=== PATIENT | male | born 1955 | race Caucasian/White ===

== ENCOUNTER 2020-07-24 11:01 | Inpatient (IN) | payer OTHER, MEDICARE ==
[2020-07-24] VITALS (10 sets, daily range): BP systolic 77–143; BP diastolic 44–78
[~2020-07-24] VITALS: Ht 170.2 cm; Wt 73.4 kg
--- NOTE | 2020-07-24 11:03 | NUR ---
ED Nurse Note: Pt BIBA RA61 from asssited living facility c/o hyperglycemia. Per EMS, accucheck reads 'High", NS 200ml IV was given en route Pt has hx of ETOH, non compliant with is medications. Stated his last alcohol intake was 4 days ago. Noted with labored breathing, 99% RA. AAox4, verbally responisve. Pt placed on site monitor. ERMD at bedside.
--- NOTE | 2020-07-24 11:05 | Emergency Room Report ---
History of Present Illness General Source: Patient Present Illness HPI 65-year-old male brought by EMS from [facility] for complaint of hypoglycemia. In the field, Accu-Chek was read "high". Patient states that he has been drinking recently and forgot to take his medications. He has had several hospitalizations in the past for DKA. He denies fevers, chills, nausea, vomiting, diarrhea, dysuria, melena, hematochezia or focal weakness. He states that he is really thirsty and he has been peeing a lot. Denies syncope, falls, head trauma, visual changes, difficulty ambulating The patient's symptoms were gradual onset, severity was moderate, duration since several days. Quality: Thirsty Past medical history: Diabetes, alcoholism Past surgical history: Denies Smoking: Denies Alcohol use: Heavy daily use Drug use: Denies Review of systems: CONST: No fevers or chills, No night sweats PULMONARY: No productive cough, No shortness of breath CARDIAC: No chest pain, No palpitations GI: No vomiting, No diarrhea , No melena_or_BRBPR : No dysuria, No hematuria, No discharge NEURO: No new_focal_weakness_or_numbness, No confusion, No vision changes 14 point Review of Systems is otherwise negative except per HPI Physical Exam: GENERAL: Awake_alert_ nontoxic, no acute distress Spo2 98% on RA -normal EYES: Extraocular muscles are intact. Conjunctivae clear. Lids without swelling ENT: External nose and ear normal_in_appearance. Oropharynx clear. Head_atraumatic, dry_oral_mucosa NECK: No JVD. No meningismus. No thyromegaly. Supple. Trachea midline RESP: Tachypneic. Kussmaul respirations. Normal respiratory effort. Symmetric rise. No stridor. Clear_to_auscultation_ No_rales_No_wheezes CARDIAC: Tachycardic. And regular rhytm. No_significant pedal edema. ABDOMEN: Soft. Nondistended. Nontender_No_rebound_or_guarding. MSK: Normal muscle tone, without rigidity. Extremities without asymmetric deformity or swelling. SKIN: Warm and dry. No visible cyanosis or pallor. Skin tenting NEUROLOGIC: Alert, oriented x3. Motor_and_sensation_grossly_intact. No truncal ataxia. Gait_normal Psych: Normal mood and affect, normal judgment and insight - COORDINATION OF CARE Case was discussed with: Patient , Patient's Physician Any labs and imaging that were ordered were interpreted as part of the medical decision making: Medical Decision Making/Plan: Differential diagnosis includes DKA, HHS, dehydration, hypovolemia, electrolyte derangement such as hyponatremia / hypoglycemia, neuromuscular junction disorder such as myasthenia gravis, GI bleed, anemia, UTI, among others. On initial examination, patient is found to be tachycardic with Kussmaul respirations. No focal neurologic deficits The patient feels generally weak but has no focal neurologic deficits, abnormal muscle tone, hypo/hyperreflexia, or fatigability. No evidence of stroke, spinal cord emergency, neuromuscular junction disorder, or multiple sclerosis at this time. Initial Accu-Chek in the ER is read as "high" Labs are consistent with DKA. Initial pH is 7.0, blood sugars greater than 1000, anion gap is elevated, and patient has type II demand ischemia with troponin leak (Troponin 0.163). Patient is severely dehydrated with a lactate of 4.6, likely DKA and AKA. Blood cultures and urine cultures were ordered. There is a leukocytosis of 19, however this is likely stress response to DKA. Lipase is elevated, this is secondary to patient's Alcoholism. K is elevated at 6. Also has hypo-natremia sodium 117 due to severe hyperglycemia EKG shows peaked T waves in the septal and lateral leads. No T wave inversions. No signs of ischemia. QRS interval is not widened. ED intervention included aggressive IV fluids NS 30 cc/kg, regular insulin bolus, insulin drip, calcium, dextrose, bicarb. I spoke with Dr. Espino/Marguerite, and reviewed the patients presentation, workup, results, and treatment. They will admit the patient for further care and evaluation, and assume care of the patient at this time. I spoke with [place] Dr. Rose who was informed of all of the ED findings and interventions. Patient is too unstable for transfer. Dr. Rose is authorizing stay here at [facility] #[phone] Allergies: Coded Allergies: No Known Allergies (Unverified , 07/24/20) Physical Exam Sp02 EP Interpretation: reviewed, normal Procedures Critical Care Time Critical Care Time Critical Care Statement Organ systems at risk include: Metabolic, circulatory, cardiac Critical care performed for 60 minutes. Time is exclusive of separately billable procedures. Time includes: direct patient care, continuous monitoring and multiple patient reassessment, coordination of patient care, review of patient's medical records, medical consultation, family consultation regarding treatment decisions and documentation of patient care. Medical Decision Making Diagnostic Impression: Primary Impression: DKA (diabetic ketoacidoses) Additional Impressions: Alcoholic ketoacidosis Alcoholism Alcoholic pancreatitis Non-compliance Hyperglycemia Diabetes Schizophrenia EKG Diagnostic Results Troponin ordered: Yes When was troponin ordered?: Jul 24, 2020 EKG Time: 11:38 Rate: tachycardiac Rhythm: NSR ST Segments: other - Peaked T waves ASA given to the pt in ED: Yes PA Scribe Text 12-lead EKG (interpreted by me) Time: 1138 Indication: Rhythm analysis Tracing visualized and Interpreted by me. Rhythm: Normal sinus rhythm Rate: 97 bpm QTc: 449 Morphology: No_significant_ST_elevations_or_depressions, No STEMI Impression: Normal sinus rhythm, left atrial enlargement, left axis deviation Rhythm Strip Diag. Results Rhythm Strip Time: 13:01 EP Interpretation: yes Rate: 102 Rhythm: NSR, no PVC's, no ectopy Chest X-Ray Diagnostic Results Chest X-Ray Diagnostic Results : PA Scribe Text Chest X-Ray: Views: 1 view(s) Indication: SOB Findings: Normal heart size. Mediastinum normal. No infiltrate. Impression: hazy infiltrates The X-ray(s) were independently viewed and interpreted contemporaneously Electronically signed by Carolina gay DO Reevaluation Time: 13:02 Status: improved Disposition: ADMITTED INPATIENT - ICU KIMBERLEY/MARGUERITE Admit Decision Time: 12:00 Condition: Serious Scripts Unable to Obtain Active Prescriptions or Reported Meds Carolina Farias D.O. Jul 24, 2020 11:05
--- NOTE | 2020-07-24 11:05 | NUR ---
ED Nurse Note: IV line establsihed by EMT seating captain. Blood and covid swab sent to lab.
[2020-07-24] MEDS ORDERED: Thiamine HCl 100 MG in D5W 55 ML IVPB ONE (11:15)
[2020-07-24 11:39] LABS: HEMATOCRIT 45.3 % (42.0-52.0); HEMOGLOBIN 14.5 G/DL (14.2-18.0); MEAN CORPUSCULAR VOLUME 97 FL (80-99); PLATELET COUNT 483 K/UL (150-450); RED BLOOD COUNT 4.68 M/UL (4.70-6.10); RED CELL DISTRIBUTION WIDTH 13.5 % (11.6-14.8); WHITE BLOOD COUNT 19.4 K/UL (4.8-10.8)
[2020-07-24] MEDS ORDERED: cefTRIAXone 1 GM in NS 55 ML IVPB ONE (11:45)
[2020-07-24] MEDS ORDERED: Insulin Human Regular 100units/ml 3ml IV ONE (12:30)
[2020-07-24] MEDS ORDERED: Sodium Bicarbonate 50ml Carp IV ONE (12:30)
[2020-07-24] MEDS: Calcium Gluconate 1gm/50ml 50 ML IVPB SCH ×2 (12:41→13:30)
[2020-07-24] MEDS ORDERED: LORazepam Inj 2mg/ml 1ml IV PRN (12:45)
[2020-07-24] MEDS ORDERED: Albuterol/Ipratropium 3ml neb HHN PRN (12:45)
[2020-07-24] MEDS ORDERED: Nitroglycerin Subl 0.4mg tab SL PRN (12:45)
[2020-07-24] MEDS ORDERED: Insulin Reg 100 units Premix 100 ML IV SCH (12:45)
[2020-07-24] MEDS ORDERED: Miralax 17gm pkt ORAL PRN (12:45)
[2020-07-24] MEDS ORDERED: Morphine Sulfate 4mg/ml Inj (IV USE ONLY) IVP PRN (12:45)
--- NOTE | 2020-07-24 12:47 | Consultation ---
History of Present Illness General Date patient seen: Jul 24, 2020 Chief Complaint: Abnormal Labs Present Illness HPI 65-year-old male with hx of DM, schizophrenia, ETOH abuse brought in by EMS from [facility] facility because of episode of hyperglycemia . In the field, Accu-Chek was read "high". Patient states that he has been drinking recently and forgot to take his medications. He denies fevers, chills, nausea, vomiting, diarrhea, dysuria, melena, hematochezia or focal weakness. He states that he is really thirsty and he has been peeing a lot. He was found to be in DKA and was started on insulin drip and admitted to ICU. Allergies: Coded Allergies: No Known Allergies (Unverified , 07/24/20) Medication History Unable to Obtain Active Prescriptions or Reported Meds Patient History Healthcare decision maker Resuscitation status Advanced Directive on File Past Medical/Surgical History Past Medical/Surgical History: (1) Schizophrenia (2) Non-compliance (3) Alcoholism (4) Diabetes Review of Systems All Other Systems: negative except mentioned in HPI Physical Exam General Appearance: thin Lines, tubes and drains: peripheral HEENT: normocephalic, atraumatic Respiratory/Chest: chest wall non-tender, lungs clear Breasts: no masses Cardiovascular/Chest: normal peripheral pulses Abdomen: normal bowel sounds Genitourinary/Rectal: normal genital exam Extremities: normal range of motion Skin Exam: normal pigmentation Last 24 Hour Vital Signs Date Time Temp Pulse Resp B/P (MAP) Pulse Ox O2 Delivery O2 Flow Rate FiO2 07/24/20 11:01 98.2 106 24 132/78 (96) 98 Room Air Laboratory Tests Test 07/24/20 11:22 07/24/20 11:31 White Blood Count 19.4 K/UL (4.8-10.8) H Red Blood Count 4.68 M/UL (4.70-6.10) L Hemoglobin 14.5 G/DL (14.2-18.0) Hematocrit 45.3 % (42.0-52.0) Mean Corpuscular Volume 97 FL (80-99) Mean Corpuscular Hemoglobin 31.1 PG (27.0-31.0) H Mean Corpuscular Hemoglobin Concent 32.1 G/DL (32.0-36.0) Red Cell Distribution Width 13.5 % (11.6-14.8) Platelet Count 483 K/UL (150-450) H Mean Platelet Volume 6.8 FL (6.5-10.1) Neutrophils (%) (Auto) % (45.0-75.0) Lymphocytes (%) (Auto) % (20.0-45.0) Monocytes (%) (Auto) % (1.0-10.0) Eosinophils (%) (Auto) % (0.0-3.0) Basophils (%) (Auto) % (0.0-2.0) Differential Total Cells Counted 100 Neutrophils % (Manual) 71 % (45-75) Lymphocytes % (Manual) 11 % (20-45) L Monocytes % (Manual) 5 % (1-10) Eosinophils % (Manual) 0 % (0-3) Basophils % (Manual) 0 % (0-2) Band Neutrophils 13 % (0-8) H Platelet Estimate Increased H Platelet Morphology Normal Red Blood Cell Morphology Normal Sodium Level 117 MMOL/L (136-145) *L Potassium Level 6.3 MMOL/L (3.5-5.1) *H Chloride Level 74 MMOL/L (98-107) L Carbon Dioxide Level 6 MMOL/L (21-32) *L Anion Gap 38 mmol/L (5-15) H Blood Urea Nitrogen 62 mg/dL (7-18) H Creatinine 4.2 MG/DL (0.55-1.30) H Estimat Glomerular Filtration Rate 14.3 mL/min (>60) Glucose Level > 1000 MG/DL (74-106) *H Osmolality Pending Lactic Acid Level 4.60 mmol/L (0.4-2.0) H Calcium Level 8.4 MG/DL (8.5-10.1) L Magnesium Level 3.1 MG/DL (1.8-2.4) H Total Bilirubin 0.9 MG/DL (0.2-1.0) Aspartate Amino Transf (AST/SGOT) 27 U/L (15-37) Alanine Aminotransferase (ALT/SGPT) 32 U/L (12-78) Alkaline Phosphatase 170 U/L (46-116) H Troponin I 0.163 ng/mL (0.000-0.056) Total Protein 6.9 G/DL (6.4-8.2) Albumin 3.6 G/DL (3.4-5.0) Globulin 3.3 g/dL Albumin/Globulin Ratio 1.1 (1.0-2.7) Lipase 621 U/L (73-393) H Salicylates Level 9.2 ug/mL (2.8-20) Acetaminophen Level < 2 MCG/ML (10-30) L Serum Alcohol 3 mg/dL Acetone Level Pending Arterial Blood pH 7.067 (7.350-7.450) Arterial Blood Partial Pressure CO2 9.9 mmHg (35.0-45.0) *L Arterial Blood Partial Pressure O2 106.3 mmHg (75.0-100.0) H Arterial Blood HCO3 2.8 mmol/L (22.0-26.0) *L Arterial Blood Oxygen Saturation 96.1 % (95-100) Arterial Blood Base Excess -25.1 (-2-2) *L Mark Test Positive Microbiology Date/Time Source Procedure Growth Status 07/24/20 11:22 Nasopharynx SARS-CoV-2 RdRp Gene Assay - Final Complete Height (Feet): 5 Height (Inches): 9.00 Weight (Pounds): 160 Medications Current Medications Medications (Trade) Dose Ordered Sig/Zacarias Route PRN Reason Start Time Stop Time Status Last Admin Dose Admin Calcium Gluconate/ Sodium Chloride 50 ml @ 50 mls/hr Q1H IVPB 07/24/20 12:30 07/24/20 14:29 Folic Acid (Folate) 1 mg DAILY ORAL 07/24/20 11:15 08/23/20 11:14 07/24/20 11:30 Insulin Human (Reg)/Sodium Chloride 100 ml @ 0 mls/hr Q24H IV 07/24/20 12:45 07/24/20 12:46 Sodium Chloride 1,000 ml @ 999 mls/hr Q1H1M ONCE IV 07/24/20 11:45 07/24/20 12:45 07/24/20 11:57 Assessment/Plan Problem List: (1) Non-compliance ICD Codes: Z91.19 - Patient's noncompliance with other medical treatment and regimen SNOMED: 3220157 (2) DKA (diabetic ketoacidoses) ICD Codes: E11.10 - Type 2 diabetes mellitus with ketoacidosis without coma SNOMED: 20086258, 821313972 (3) Schizophrenia ICD Codes: F20.9 - Schizophrenia, unspecified SNOMED: 67064088 Assessment/Plan: IV fluids at least 6 liters insulin drip check electrolytes q 8 hour supplement electrolytes symptomatic treatment f/u [facility] Ella Everett MD Jul 24, 2020 12:47
[2020-07-24] MEDS ORDERED: Sodium Chloride 2,200 ML IVLG ONE (13:00)
--- NOTE | 2020-07-24 13:08 | Consultation ---
Consult Note Consult Note Asked to evaluate at the request of Dr. Espino for renal failure and fluid and electrolyte management Patient seen in emergency room bed 1 65-year-old male brought by EMS from [facility] for complaint of hyperglycemia. In the field, Accu-Chek was read "high". Patient states that he has been drinking recently and forgot to take his medications. He has had several hospitalizations in the past for DKA. He denies fevers, chills, nausea, vomiting, diarrhea, dysuria, melena, hematochezia or focal weakness. He states that he is really thirsty and he has been peeing a lot. Denies syncope, falls, head trauma, visual changes, difficulty ambulating The patient's symptoms were gradual onset, severity was moderate, duration since several days. PHYSICAL EXAMINATION: VITAL SIGNS: On admission from the emergency room, temperature 98.2, pulse of 106, respirations 24, blood pressure 132/78. GENERAL: Patient is awake, responsive. No acute distress, but chronically ill appearing. HEAD AND NECK: Pupils are equal and reactive to light. Extraocular movements are intact. Neck was supple. No JVD. LUNGS: Clear. No wheezing or rales. Decreased breath sound over the bases HEART: S1, S2. Regular rhythm. No gallops. Heart rate 106 tachycardic ABDOMEN: Soft, somewhat distended, nontender. Positive bowel sounds. EXTREMITIES: No cyanosis, clubbing, edema. 2/6. NEUROLOGIC: Lethargic responsive encephalopathic LABORATORY DATA: On admission from the emergency department WBC of 19, hemoglobin of 14, hematocrit 45, platelets is 483. Sodium 117, potassium 6.3, chloride 74, bicarb is 6, BUN is 62, creatinine is 4.2, glucose level is greater than 1000, calcium is 8.4, magnesium is 3.1. AST of 27, ALT of 32. Troponin 0.163. Albumin is 3.6. Lipase is 621. Alcohol level is 319. COVID test is negative. Chest x-ray shows the right basal infiltrate, possible pneumonia. Renal ultrasound negative for hydronephrosis. . . Assessment/Plan Impression: Acute on chronic renal failure, likely dehydration superimposed on underlying diabetic nephropathy DKA, Hyponatremia, due to hyperglycemia Hyperkalemia due to acidosis and renal failure Alcoholism Insulin-dependent diabetes mellitus, noncompliant Schizophrenia Toxic metabolic encephalopathy Suggestions: Hydrate Aim to correct electrolyte abnormalities Urine analysis and urine studies Avoid nephrotoxic's Monitor renal parameters Insulin drip keep the blood sugar between 100-200 Urine for tox screen 2D echocardiogram Kidney ultrasound Per orders I spent an additional 36 minutes on review of medical records including prior hospital records,consult notes, progress notes, procedures ,imaging labs, hemodynamics, and other clinical documentation. Over 35 min Leonardo West MD Jul 24, 2020 13:08
[2020-07-24 13:10] LABS: ALANINE AMINOTRANSFERASE 23 U/L (12-78); ALBUMIN 3.2 G/DL (3.4-5.0); ALBUMIN/GLOBULIN RATIO 0.9 (1.0-2.7); ALKALINE PHOSPHATASE 147 U/L (46-116); ANION GAP 35 mmol/L (5-15); ASPARTATE AMINO TRANSFERASE 25 U/L (15-37); BILIRUBIN,TOTAL 0.9 MG/DL (0.2-1.0); BLOOD UREA NITROGEN 65 mg/dL (7-18); CALCIUM 7.4 MG/DL (8.5-10.1); CHLORIDE 80 MMOL/L (98-107); CREATININE 3.8 MG/DL (0.55-1.30); SODIUM 121 MMOL/L (136-145)
[2020-07-24 13:15] LABS: CARBON DIOXIDE 6 MMOL/L (21-32); POTASSIUM 6.4 MMOL/L (3.5-5.1)
[2020-07-24] MEDS ORDERED: INSULIN REG IVPB SCH (13:15)
[2020-07-24] MEDS ORDERED: [UNRECOGNIZED DRUG - OTHER] IVPB SCH (13:15)
--- NOTE | 2020-07-24 13:27 | NUR ---
ED Nurse Note: Urine sent to lab.
[2020-07-24 13:40] LABS: APPEARANCE,URINE CLEAR; BILIRUBIN, URINE NEGATIVE (NEGATIVE); COLOR,URINE PALE YELLOW; GLUCOSE, URINE (UA) 4+ (NEGATIVE); KETONES,URINE 4+ (NEGATIVE); LEUKOCYTE ESTERASE ,URINE NEGATIVE (NEGATIVE); NITRITE,URINE NEGATIVE (NEGATIVE); PH,URINE 5 (4.5-8.0); PROTEIN,URINE 2+ (NEGATIVE); UROBILINOGEN,URINE NORMAL MG/DL (0.0-1.0)
--- NOTE | 2020-07-24 13:43 | NUR ---
ED Nurse Note: entry level installation technician at bedside for 2d echo.
--- NOTE | 2020-07-24 13:54 | NUR ---
ED Nurse Note: US at bedside.
--- NOTE | 2020-07-24 14:42 | Diagnostic Imaging Report ---
Indication: Shortness of breath Technique: One view of the chest Comparison: none Findings: There is infiltrate at the right lung base. There is some atelectasis at the left lung base. The heart size is normal. Impression: Right basilar infiltrate, possibly pneumonia
[2020-07-24] MEDS ORDERED: Insulin Rate Change 1 Each MISC PRN (15:00)
[2020-07-24] MEDS ORDERED: Insulin Human Regular 100units/ml 3ml IV PRN (15:00)
[2020-07-24] MEDS: Insulin Reg 100 units Premix 100 ML IV SCH ×3 (15:01→20:37)
--- NOTE | 2020-07-24 15:01 | NUR ---
ED Nurse Note: Bedside accucheck reads "H". Insulin titrated to 17units/hr per protocol.
--- NOTE | 2020-07-24 16:08 | Diagnostic Imaging Report ---
Indication: Acute renal failure Technique: Grayscale and duplex images of the kidneys, retroperitoneum, and bladder were obtained. Comparison: none Findings: Exam is somewhat limited as the patient was breathing heavily. Right kidney measures 9.3 cm in length. Left kidney measures 10.6 cm in length. Both kidneys demonstrate normal echogenicity. No hydronephrosis. No focal abnormality. Normal inferior vena cava. Bladder is distended post void, post void bladder volume calculated as 187 mL. Impression: Negative for hydronephrosis 187 mL postvoid bladder residual.
[2020-07-24] MEDS: Docusate 100mg cap ORAL SCH (18:11)
--- NOTE | 2020-07-24 18:23 | NUR ---
ED Nurse Note: Called Dr. Espino for another Insulin drip order, noted and carried out.
[2020-07-24 18:24] LABS: ALBUMIN 2.7 G/DL (3.4-5.0); ALBUMIN/GLOBULIN RATIO 0.8 (1.0-2.7); BILIRUBIN,TOTAL 0.7 MG/DL (0.2-1.0); CALCIUM 7.6 MG/DL (8.5-10.1); CREATININE 3.3 MG/DL (0.55-1.30); POTASSIUM 3.2 MMOL/L (3.5-5.1)
[2020-07-24] MEDS ORDERED: Insulin Reg 100 units Premix 100 ML IVPB SCH (18:30)
--- NOTE | 2020-07-24 19:04 | NUR ---
HAND-OFF: Report given to Fabiana SOLARES.
--- NOTE | 2020-07-24 19:30 | NUR ---
ED Nurse Note: received report from marco a flanagan. patient resting in bed with no acute distress. vitals stable to baseline. patient aware of pending transfer.
--- NOTE | 2020-07-24 20:15 | NUR ---
TRANSFER TO FLOOR: Patient transferred to icu 246 l as ordered, per shaun ochoa. Report given to everton flanagan. patient stable for transport. transferred to unit via gurney with with 2 rn. belongings and admission packet sent with patient.
--- NOTE | 2020-07-24 20:20 | NUR ---
Nurse Notes: Received report from BECK Smyth. patient arrived to ICU via gurney. patient lethargic, arousable to light pain oriented to self. respirations even and unlabored on room air. BP 77/45 HR 99 NSR on monitor and afebrile. Blood sugar 515. orders received to resume insulin drip. PIV right AC #18 clean and patent running insulin on algorithm 3 @ 17 units/Hr and NS @150ml/hr. skin cool dry intact with perineal and scrotal redness noted. patient repositioned self. bed locked lowest position call light within reach.
[2020-07-24] MEDS: Pantoprazole Inj IVP SCH (20:35)
[2020-07-24] MEDS: Heparin 5000 units/ml inj SUBQ SCH (20:36)
[2020-07-24] MEDS: Tamsulosin 0.4mg cap ORAL SCH (21:00)
--- NOTE | 2020-07-24 21:08 | NUR ---
NURSE NOTES: Called and notified Md Everett about patients current BP 74/48. MD ordered to Bolus 2 L NS at this time.
[2020-07-24] MEDS: Insulin Human Regular 100units/ml 3ml IV PRN ×2 (21:38→23:37)
[2020-07-24] MEDS ORDERED: Potassium Phosphate 20 MM in NS 275 ML IV ONE (22:00)
[2020-07-25] VITALS (24 sets, daily range): BP systolic 90–181; BP diastolic 41–79
--- NOTE | 2020-07-25 | NUR ---
Nurse Notes: patient asleep arousable to name, oriented to self. respirations even and unlabored on room air. BP 90/47 HR 96 NSR on monitor and afebrile. Blood sugar 177. PIV right AC #18 and left Hand #22 clean and patent running insulin on algorithm 3 @ 5 units/Hr and NS @150ml/hr. skin cool dry intact with perineal and scrotal redness noted. patient repositioned self.
[2020-07-25] MEDS ORDERED: Insulin Reg 100 units Premix 100 ML IV SCH ×2 (00:37)
--- NOTE | 2020-07-25 02:00 | NUR ---
Nurse Notes: patient asleep arousable to name, oriented to self. respirations even and unlabored on room air. BP 115/52 HR 94 NSR on monitor and afebrile. PIV right AC #18 and left Hand #22 clean and patent running insulin on algorithm 3 @ 3 units/Hr and NS @150ml/hr. skin cool dry intact with perineal and scrotal redness noted. patient had small formed brown bowel movement. patient bathed, and repositioned self.
--- NOTE | 2020-07-25 04:00 | NUR ---
Nurse Notes: patient asleep arousable to name, oriented to self. respirations even and unlabored on room air. BP 137/53 HR 94 NSR on monitor and afebrile. PIV right AC #18 and left forearm #22 clean and patent running insulin on algorithm 3 @ 1 units/Hr and NS @150ml/hr. skin cool dry intact with perineal and scrotal redness noted. patient repositioned self.
--- NOTE | 2020-07-25 06:00 | NUR ---
Nurse Notes: patient asleep arousable to name, oriented to self. respirations even and unlabored on room air. BP 151/45 HR 87 NSR on monitor and afebrile. PIV right AC #18 and left forearm #22 clean and patent running insulin on algorithm 3 @ 2 units/Hr and NS @150ml/hr. skin cool dry intact with perineal and scrotal redness noted. patient repositioned self. bed locked lowest position.
[2020-07-25 06:17] LABS: AMMONIA 29 umol/L (11-32)
[2020-07-25 06:24] LABS: INR 1.1 (0.9-1.1)
--- NOTE | 2020-07-25 06:36 | NUR ---
NURSE NOTES: Paged Dr. Espino regarding troponin 0.441, VSS, patient in no acute distress. message left. awaiting call back.
[2020-07-25 06:39] LABS: ALANINE AMINOTRANSFERASE 22 U/L (12-78); ALBUMIN 2.2 G/DL (3.4-5.0); ALKALINE PHOSPHATASE 91 U/L (46-116); ANION GAP 12 mmol/L (5-15); ASPARTATE AMINO TRANSFERASE 35 U/L (15-37); BILIRUBIN,TOTAL 0.4 MG/DL (0.2-1.0); BLOOD UREA NITROGEN 76 mg/dL (7-18); CALCIUM 7.9 MG/DL (8.5-10.1); CARBON DIOXIDE 17 MMOL/L (21-32); CHLORIDE 111 MMOL/L (98-107); CHOLESTEROL 119 MG/DL (< 200); CREATININE 2.3 MG/DL (0.55-1.30); HDL CHOLESTEROL 39 MG/DL (40-60); PHOSPHORUS 1.4 MG/DL (2.5-4.9); POTASSIUM 3.8 MMOL/L (3.5-5.1); SODIUM 140 MMOL/L (136-145); TRIGLYCERIDES 71 MG/DL (30-150)
[2020-07-25 06:43] LABS: CREATINE KINASE 293 U/L (26-308); GAMMA GLUTAMYL TRANSPEPTIDASE 21 U/L (5-85); LACTATE DEHYDROGENASE 231 U/L (81-234)
--- NOTE | 2020-07-25 07:17 | NUR ---
NURSE HAND-OFF REPORT: Latest Vital Signs: Temperature 98.0 , Pulse 86 , B/P 124 /55 , Respiratory Rate 21 , O2 SAT 100 , Room Air, O2 Flow Rate 2.0 . Vital Sign Comment: WNL EKG Rhythm: Sinus Rhythm Rhythm change?: N MD Notified?: - MD Response: Latest Copeland Fall Score: 50 Fall Risk: High Risk Safety Measures: Call light Within Reach, Bed Alarm Zone 1, Side Rails Side Rails x3, Bed position Low and Locked. Fall Precautions: Yellow Socks Yellow Gown Door Sign Patient Fall Education Report given to BECK Marucs.
--- NOTE | 2020-07-25 07:18 | NUR ---
NURSE NOTES: Received patient from Tyra SOLARES. Patient is asleep, alert and oriented x1, responds to name. Sinus Rhythm on the heart monitor, HR 87. Receiving oxygen via Room Air, O2 saturation at 98%. IV site is Right AC 20g intact and receiving Insulin Drip at 1 unit/hr, and Left Forearm 22g receiving NS at 150cc/hr. Condom catheter is patent and draining.
[2020-07-25] MEDS: Pantoprazole Inj IVP SCH ×2 (08:32→20:08)
[2020-07-25] MEDS: Docusate 100mg cap ORAL SCH ×3 (08:32→18:00)
[2020-07-25 08:37] LABS: BASOPHILS % (AUTO) 1.6 % (0.0-2.0); HEMATOCRIT 29.4 % (42.0-52.0); HEMOGLOBIN 10.8 G/DL (14.2-18.0); LYMPHOCYTES % (AUTO) 6.8 % (20.0-45.0); MEAN CORPUSCULAR VOLUME 84 FL (80-99); MONOCYTES % (AUTO) 8.4 % (1.0-10.0); NEUTROPHILS % (AUTO) 83.2 % (45.0-75.0); PLATELET COUNT 207 K/UL (150-450); RED BLOOD COUNT 3.48 M/UL (4.70-6.10); RED CELL DISTRIBUTION WIDTH 12.4 % (11.6-14.8); WHITE BLOOD COUNT 8.8 K/UL (4.8-10.8)
--- NOTE | 2020-07-25 08:44 | NUR ---
NURSE NOTES: Oral medications held due to patient being lethargic and unable to swallow. Fingerstick glucose checked, 138mg/dL, following protocol, Algorithm 3 at 3units/hr. Patient remains lethargic, unable to respond to questions, responds to name by making grunting noises.
[2020-07-25] MEDS: Heparin 5000 units/ml inj SUBQ SCH ×2 (09:00→20:10)
--- NOTE | 2020-07-25 09:11 | NUR ---
CASE MANAGEMENT:REVIEW 65 YR OLD MALE BIBAA CC: ABNORMAL LABS SI: DKA. ALCOHOLIC PANCREATITIS 98.2 106 24 132/78 98% ON RA WBC+19.4 PLT+483 OSMO+361 NA-121 K+6.4 BUN+65 CR+3.8 GLUCOSE+1083 LIPASE+732 PH-7.067 PCO2-9.9 HCO3-2.8 IS: 1L NS BOLUS X2 IV THIAMINE IV ROCEPHIN INSULIN GTT URINE/BLOOD CX COVID SWAB CXR : TO ICU
--- NOTE | 2020-07-25 10:36 | NUR ---
NURSE NOTES: Fingerstick glucose 102 mg/dL, Insulin drip to be discontinued per Dr. Everett.
--- NOTE | 2020-07-25 10:41 | NUR ---
NURSE NOTES: Patient remains lethargic, when asked for hand to check fingerstick glucose, patient was able to follow commands, but does not respond verbally.
--- NOTE | 2020-07-25 10:46 | Pulmonolgy Critical Care Note ---
Critical Care - Asmt/Plan Problems: (1) DKA (diabetic ketoacidoses) (2) Acute on chronic renal insufficiency (3) Alcoholism (4) Non-compliance (5) Schizophrenia Respiratory: monitor respiratory rate, adjust FIO2, CXR Cardiac: continue to monitor HR/BP Renal: F/U I&O, decrease IV fluid, check electrolytes, other - chanage IV fluid to d5 1/2 NS Infectious Disease: check cultures Gastrointestinal: continue feedings/current rate Endocrine: d/c insulin drip, continue sliding scale insulin Hematologic: monitor H/H, transfuse if hgb<8.5 Neurologic: PRN Ativan, PRN Morphine, keep patient comfortable Affect: PRN ativan Prophylaxis: Protonix, Heparin Disposition: keep in ICU Time Spent (Minutes): 40 Notes Reviewed: superintendent renting managing, cardio, renal Discussed with: nurses, consultants, medical case manageradministrative manager - Objective Last 24 Hour Vital Signs Date Time Temp Pulse Resp B/P (MAP) Pulse Ox O2 Delivery O2 Flow Rate FiO2 07/25/20 10:00 89 23 157/62 (93) 100 07/25/20 09:00 86 22 137/54 (81) 100 07/25/20 08:00 Room Air 07/25/20 08:00 97.5 87 22 131/51 (77) 100 07/25/20 07:26 88 07/25/20 07:00 86 21 124/55 (78) 100 07/25/20 06:00 87 22 151/45 (80) 100 07/25/20 05:00 89 22 111/41 (64) 100 07/25/20 04:00 94 07/25/20 04:00 98.0 94 26 137/53 (81) 99 07/25/20 04:00 Room Air 07/25/20 03:00 96 28 111/41 (64) 93 07/25/20 02:00 94 24 115/52 (73) 98 07/25/20 01:00 95 16 105/49 (67) 100 07/25/20 00:00 Room Air 07/25/20 00:00 97.6 96 24 90/47 (61) 100 07/25/20 00:00 97 07/24/20 23:00 95 24 121/54 (76) 98 07/24/20 22:00 92 23 125/45 (71) 100 07/24/20 21:45 92 23 114/47 (69) 07/24/20 21:30 95 23 92/44 (60) 07/24/20 21:00 97.4 99 27 77/45 (56) 07/24/20 21:00 100 Nasal Cannula 2.0 28 07/24/20 20:27 Room Air 07/24/20 20:15 98.2 99 24 99/77 96 Room Air 07/24/20 18:57 98.2 99 24 97/77 96 Room Air 07/24/20 15:21 98.2 97 27 128/57 96 Room Air 07/24/20 14:11 98.2 89 21 138/72 100 Room Air 07/24/20 13:15 98.2 101 25 143/68 100 Room Air 07/24/20 11:05 98.2 106 24 132/78 98 Room Air 07/24/20 11:01 98.2 106 24 132/78 (96) 98 Room Air Status: somnolent Condition: critical HEENT: atraumatic Neck: full ROM Lungs: clear, chest wall tender Heart: HR/BP stable Abdomen: soft, active bowel sounds Extremities: no C/C/E, edema Micro: Microbiology Date/Time Source Procedure Growth Status 07/24/20 11:22 Nasopharynx SARS-CoV-2 RdRp Gene Assay - Final Complete Accucheck: 102 Critical Care - Subjective ROS Limited/Unobtainable: Yes ICU Day: 2 Interval Events: still somnolent, Anion gap closed. FI02: 28 Fluids: NS 150 cc/hour I&O: Intake and Output 07/24/20 07/25/20 19:00 07:00 Intake Total 5325 ml 3827.49062 ml Output Total 830 ml Balance 5325 ml 2997.93531 ml Intake IV Total 5325 ml 3827.21301 ml Output Urine Total 830 ml # Bowel Movements 4 Labs: Laboratory Tests Test 07/24/20 11:22 07/24/20 11:31 07/24/20 12:33 07/24/20 13:27 White Blood Count 19.4 K/UL (4.8-10.8) H Red Blood Count 4.68 M/UL (4.70-6.10) L Hemoglobin 14.5 G/DL (14.2-18.0) Hematocrit 45.3 % (42.0-52.0) Mean Corpuscular Volume 97 FL (80-99) Mean Corpuscular Hemoglobin 31.1 PG (27.0-31.0) H Mean Corpuscular Hemoglobin Concent 32.1 G/DL (32.0-36.0) Red Cell Distribution Width 13.5 % (11.6-14.8) Platelet Count 483 K/UL (150-450) H Mean Platelet Volume 6.8 FL (6.5-10.1) Neutrophils (%) (Auto) % (45.0-75.0) Lymphocytes (%) (Auto) % (20.0-45.0) Monocytes (%) (Auto) % (1.0-10.0) Eosinophils (%) (Auto) % (0.0-3.0) Basophils (%) (Auto) % (0.0-2.0) Differential Total Cells Counted 100 Neutrophils % (Manual) 71 % (45-75) Lymphocytes % (Manual) 11 % (20-45) L Monocytes % (Manual) 5 % (1-10) Eosinophils % (Manual) 0 % (0-3) Basophils % (Manual) 0 % (0-2) Band Neutrophils 13 % (0-8) H Platelet Estimate Increased H Platelet Morphology Normal Red Blood Cell Morphology Normal Osmolality 361 mOsm/kg (297-317) H Lactic Acid Level 4.60 mmol/L (0.4-2.0) H Acetone Level Positive-large (NEGATIVE) Arterial Blood pH 7.067 (7.350-7.450) Arterial Blood Partial Pressure CO2 9.9 mmHg (35.0-45.0) *L Arterial Blood Partial Pressure O2 106.3 mmHg (75.0-100.0) H Arterial Blood HCO3 2.8 mmol/L (22.0-26.0) *L Arterial Blood Oxygen Saturation 96.1 % (95-100) Arterial Blood Base Excess -25.1 (-2-2) *L Mark Test Positive Sodium Level 121 MMOL/L (136-145) L Potassium Level 6.4 MMOL/L (3.5-5.1) *H Chloride Level 80 MMOL/L (98-107) L Carbon Dioxide Level 6 MMOL/L (21-32) *L Anion Gap 35 mmol/L (5-15) H Blood Urea Nitrogen 65 mg/dL (7-18) H Creatinine 3.8 MG/DL (0.55-1.30) H Estimat Glomerular Filtration Rate 16.1 mL/min (>60) Glucose Level 1083 MG/DL (74-106) *H Calcium Level 7.4 MG/DL (8.5-10.1) L Magnesium Level 2.8 MG/DL (1.8-2.4) H Total Bilirubin 0.9 MG/DL (0.2-1.0) Aspartate Amino Transf (AST/SGOT) 25 U/L (15-37) Alanine Aminotransferase (ALT/SGPT) 23 U/L (12-78) Alkaline Phosphatase 147 U/L (46-116) H Total Protein 6.6 G/DL (6.4-8.2) Albumin 3.2 G/DL (3.4-5.0) L Globulin 3.4 g/dL Albumin/Globulin Ratio 0.9 (1.0-2.7) L Lipase 732 U/L (73-393) H Salicylates Level 10.4 ug/mL (2.8-20) Acetaminophen Level < 2 MCG/ML (10-30) L Serum Alcohol < 3 mg/dL Urine Color Pale yellow Urine Appearance Clear Urine pH 5 (4.5-8.0) Urine Specific Delta 1.015 (1.005-1.035) Urine Protein 2+ (NEGATIVE) H Urine Glucose (UA) 4+ (NEGATIVE) H Urine Ketones 4+ (NEGATIVE) H Urine Blood 4+ (NEGATIVE) H Urine Nitrite Negative (NEGATIVE) Urine Bilirubin Negative (NEGATIVE) Urine Urobilinogen Normal MG/DL (0.0-1.0) Urine Leukocyte Esterase Negative (NEGATIVE) Urine RBC 2-4 /HPF (0 - 0) H Urine WBC 0-2 /HPF (0 - 0) Urine Squamous Epithelial Cells Occasional /LPF Urine Bacteria None /HPF (NONE) Urine Random Sodium 33 mmol/L (20-110) Urine Opiates Screen Negative (NEGATIVE) Urine Barbiturates Screen Negative (NEGATIVE) Phencyclidine (PCP) Screen Negative (NEGATIVE) Urine Amphetamines Screen Negative (NEGATIVE) Urine Benzodiazepines Screen Negative (NEGATIVE) Urine Cocaine Screen Negative (NEGATIVE) Urine Marijuana (THC) Screen Negative (NEGATIVE) Test 10/8/20 14:48 07/24/20 17:23 07/24/20 17:33 07/24/20 20:29 Lactic Acid Level 2.70 mmol/L (0.66-2.22) H Phosphorus Level 2.5 MG/DL (2.5-4.9) Sodium Level 135 MMOL/L (136-145) #L Potassium Level 3.2 MMOL/L (3.5-5.1) L Chloride Level 95 MMOL/L (98-107) L Carbon Dioxide Level 10 MMOL/L (21-32) L Anion Gap 30 mmol/L (5-15) H Blood Urea Nitrogen 66 mg/dL (7-18) H Creatinine 3.3 MG/DL (0.55-1.30) H Estimat Glomerular Filtration Rate 18.9 mL/min (>60) Glucose Level 638 MG/DL (74-106) #*H Calcium Level 7.6 MG/DL (8.5-10.1) L Total Bilirubin 0.7 MG/DL (0.2-1.0) Aspartate Amino Transf (AST/SGOT) 32 U/L (15-37) Alanine Aminotransferase (ALT/SGPT) 24 U/L (12-78) Alkaline Phosphatase 129 U/L (46-116) H Total Protein 5.9 G/DL (6.4-8.2) L Albumin 2.7 G/DL (3.4-5.0) L Globulin 3.2 g/dL Albumin/Globulin Ratio 0.8 (1.0-2.7) L POC Whole Blood Glucose Pending Test 07/24/20 21:23 07/24/20 22:21 07/24/20 23:30 07/25/20 00:34 POC Whole Blood Glucose Pending Pending Pending Pending Test 07/25/20 01:30 07/25/20 05:10 07/25/20 08:20 07/25/20 09:38 POC Whole Blood Glucose 138 MG/DL (74-106) H Prothrombin Time 12.3 SEC (9.30-11.50) H Prothromb Time International Ratio 1.1 (0.9-1.1) Activated Partial Thromboplast Time 34 SEC (23-33) H Sodium Level 140 MMOL/L (136-145) Potassium Level 3.8 MMOL/L (3.5-5.1) Chloride Level 111 MMOL/L (98-107) H Carbon Dioxide Level 17 MMOL/L (21-32) L Anion Gap 12 mmol/L (5-15) Blood Urea Nitrogen 76 mg/dL (7-18) H Creatinine 2.3 MG/DL (0.55-1.30) H Estimat Glomerular Filtration Rate 28.7 mL/min (>60) Glucose Level 119 MG/DL (74-106) #H Hemoglobin A1c 11.3 % (4.3-6.0) H Uric Acid 7.7 MG/DL (2.6-7.2) H Calcium Level 7.9 MG/DL (8.5-10.1) L Phosphorus Level 1.4 MG/DL (2.5-4.9) L Magnesium Level 1.8 MG/DL (1.8-2.4) Total Bilirubin 0.4 MG/DL (0.2-1.0) Gamma Glutamyl Transpeptidase 21 U/L (5-85) Aspartate Amino Transf (AST/SGOT) 35 U/L (15-37) Alanine Aminotransferase (ALT/SGPT) 22 U/L (12-78) Alkaline Phosphatase 91 U/L (46-116) Ammonia 29 umol/L (11-32) Lactate Dehydrogenase 231 U/L (81-234) Total Creatine Kinase 293 U/L (26-308) Troponin I 0.441 ng/mL (0.000-0.056) C-Reactive Protein, Quantitative 20.1 mg/dL (0.00-0.90) H Pro-B-Type Natriuretic Peptide 3451 pg/mL (0-125) H Total Protein 4.5 G/DL (6.4-8.2) L Albumin 2.2 G/DL (3.4-5.0) L Globulin 2.3 g/dL Albumin/Globulin Ratio 1.0 (1.0-2.7) Triglycerides Level 71 MG/DL (30-150) Cholesterol Level 119 MG/DL (< 200) LDL Cholesterol 59 mg/dL (<100) HDL Cholesterol 39 MG/DL (40-60) L Cholesterol/HDL Ratio 3.1 (3.3-4.4) L Lipase 796 U/L (73-393) H Thyroid Stimulating Hormone (TSH) 0.720 uiU/mL (0.358-3.740) White Blood Count 8.8 K/UL (4.8-10.8) # Red Blood Count 3.48 M/UL (4.70-6.10) L Hemoglobin 10.8 G/DL (14.2-18.0) L Hematocrit 29.4 % (42.0-52.0) #L Mean Corpuscular Volume 84 FL (80-99) # Mean Corpuscular Hemoglobin 31.1 PG (27.0-31.0) H Mean Corpuscular Hemoglobin Concent 36.9 G/DL (32.0-36.0) H Red Cell Distribution Width 12.4 % (11.6-14.8) Platelet Count 207 K/UL (150-450) # Mean Platelet Volume 7.6 FL (6.5-10.1) Neutrophils (%) (Auto) 83.2 % (45.0-75.0) H Lymphocytes (%) (Auto) 6.8 % (20.0-45.0) L Monocytes (%) (Auto) 8.4 % (1.0-10.0) Eosinophils (%) (Auto) 0.0 % (0.0-3.0) Basophils (%) (Auto) 1.6 % (0.0-2.0) Arterial Blood pH 7.390 (7.350-7.450) Arterial Blood Partial Pressure CO2 28.1 mmHg (35.0-45.0) L Arterial Blood Partial Pressure O2 88.3 mmHg (75.0-100.0) Arterial Blood HCO3 16.6 mmol/L (22.0-26.0) *L Arterial Blood Oxygen Saturation 95.6 % (95-100) Arterial Blood Base Excess -7.2 (-2-2) L Mark Test Positive Ella Everett MD Jul 25, 2020 10:46
--- NOTE | 2020-07-25 11:32 | Nephrology Progress Note ---
Assessment/Plan Problem List: (1) MINA (acute kidney injury) (2) Dehydration (3) Electrolyte imbalance (4) DKA (diabetic ketoacidoses) (5) Alcoholic pancreatitis (6) Acute on chronic renal insufficiency Assessment Acute on chronic renal failure, likely dehydration superimposed on underlying diabetic nephropathy DKA, Hyponatremia, due to hyperglycemia Hyperkalemia due to acidosis and renal failure Alcoholism Insulin-dependent diabetes mellitus, noncompliant Schizophrenia Plan Hydrate. Aim to correct electrolyte abnormalities Urine analysis and urine studies, noted Avoid nephrotoxic's Monitor renal parameters Insulin drip keep the blood sugar between 100-200 Urine for tox screen 2D echocardiogram: Pending Kidney ultrasound : Impression: Negative for hydronephrosis 187 mL postvoid bladder residual. Subjective ROS Limited/Unobtainable: No Constitutional: Reports: malaise, weakness Objective Objective Last 24 Hour Vital Signs Date Time Temp Pulse Resp B/P (MAP) Pulse Ox O2 Delivery O2 Flow Rate FiO2 07/25/20 10:00 89 23 157/62 (93) 100 07/25/20 09:00 86 22 137/54 (81) 100 07/25/20 08:00 Room Air 07/25/20 08:00 97.5 87 22 131/51 (77) 100 07/25/20 07:26 88 07/25/20 07:00 86 21 124/55 (78) 100 07/25/20 06:00 87 22 151/45 (80) 100 07/25/20 05:00 89 22 111/41 (64) 100 07/25/20 04:00 94 07/25/20 04:00 98.0 94 26 137/53 (81) 99 07/25/20 04:00 Room Air 07/25/20 03:00 96 28 111/41 (64) 93 07/25/20 02:00 94 24 115/52 (73) 98 07/25/20 01:00 95 16 105/49 (67) 100 07/25/20 00:00 Room Air 07/25/20 00:00 97.6 96 24 90/47 (61) 100 07/25/20 00:00 97 07/24/20 23:00 95 24 121/54 (76) 98 07/24/20 22:00 92 23 125/45 (71) 100 07/24/20 21:45 92 23 114/47 (69) 07/24/20 21:30 95 23 92/44 (60) 07/24/20 21:00 97.4 99 27 77/45 (56) 07/24/20 21:00 100 Nasal Cannula 2.0 28 07/24/20 20:27 Room Air 07/24/20 20:15 98.2 99 24 99/77 96 Room Air 07/24/20 18:57 98.2 99 24 97/77 96 Room Air 07/24/20 15:21 98.2 97 27 128/57 96 Room Air 07/24/20 14:11 98.2 89 21 138/72 100 Room Air 07/24/20 13:15 98.2 101 25 143/68 100 Room Air Intake and Output 07/24/20 07/25/20 19:00 07:00 Intake Total 5325 ml 3827.08739 ml Output Total 830 ml Balance 5325 ml 2997.84914 ml Intake IV Total 5325 ml 3827.42862 ml Output Urine Total 830 ml # Bowel Movements 4 Current Medications Medications (Trade) Dose Ordered Sig/Zacarias Route PRN Reason Start Time Stop Time Status Last Admin Dose Admin Acetaminophen (Tylenol) 650 mg Q4H PRN ORAL Fever (T>100.5) 07/24/20 12:45 08/23/20 12:44 Albuterol/ Ipratropium (Albuterol/ Ipratropium) 3 ml Q4H PRN HHN Shortness of Breath 07/24/20 12:45 07/29/20 12:44 Dextrose (Dextrose 50%) 25 ml Q30M PRN IV Hypoglycemia 07/25/20 10:45 10/23/20 10:44 Dextrose (Dextrose 50%) 50 ml Q30M PRN IV Hypoglycemia 07/25/20 10:45 10/23/20 10:44 Dextrose/ Electrolytes 1,000 ml @ 75 mls/hr [id number] IV 07/25/20 12:00 08/24/20 11:59 Docusate Sodium (Colace) 100 mg THREE TIMES A DAY ORAL 07/24/20 18:00 08/23/20 17:59 07/24/20 18:11 Folic Acid (Folate) 1 mg DAILY ORAL 07/24/20 11:15 08/23/20 11:14 07/24/20 11:30 Heparin Sodium (Porcine) (Heparin 5000 units/ml) 5,000 units EVERY 12 HOURS SUBQ 07/24/20 21:00 09/07/20 20:59 07/24/20 20:36 Insulin Aspart (NovoLOG) BEFORE MEALS AND HS SUBQ 07/25/20 11:30 10/23/20 11:29 Insulin Human (Reg)/Sodium Chloride 100 ml @ 0 mls/hr Q24H IV 07/25/20 00:37 10/23/20 00:36 07/25/20 00:37 Insulin Human Regular (NovoLIN R) 5 units PRN PRN IV BS 200-299 07/24/20 15:00 10/22/20 14:59 07/24/20 23:37 Insulin Human Regular (NovoLIN R) 10 units PRN PRN IV BS=>300 07/24/20 15:00 10/22/20 14:59 07/24/20 20:38 Lorazepam (Ativan 2mg/ml 1ml) 2 mg Q2H PRN IV agitation 07/24/20 12:45 07/31/20 12:44 Miscellaneous Medication (Insulin Rate Change) 1 ea PRN PRN MISC To Patient Comfort 07/24/20 15:00 10/22/20 14:59 Morphine Sulfate (Morphine Sulfate) 4 mg Q4H PRN IVP Severe Pain (Pain Scale 7-10) 07/24/20 12:45 07/31/20 12:44 Nitroglycerin (Ntg) 0.4 mg Q5M PRN SL Prn Chest Pain 07/24/20 12:45 08/23/20 12:44 Ondansetron HCl (Zofran) 4 mg Q6H PRN IVP Nausea & Vomiting 07/24/20 12:45 08/23/20 12:44 Pantoprazole (Protonix) 40 mg EVERY 12 HOURS IVP 07/24/20 21:00 08/23/20 20:59 07/25/20 08:32 Polyethylene Glycol (Miralax) 17 gm DAILYPRN PRN ORAL Constipation 07/24/20 12:45 08/23/20 12:44 Potassium Phosphate 250 ml @ 62.5 mls/hr Q4H IVPB 07/25/20 11:00 07/25/20 18:59 Tamsulosin HCl (Flomax) 0.4 mg BEDTIME ORAL 07/24/20 21:00 08/23/20 20:59 Laboratory Tests 07/24/20 12:33: Sodium Level 121L, Potassium Level 6.4*H, Chloride Level 80L, Carbon Dioxide Level 6*L, Anion Gap 35H, Blood Urea Nitrogen 65H, Creatinine 3.8H, Estimat Glomerular Filtration Rate 16.1, Glucose Level 1083*H, Calcium Level 7.4L, Magnesium Level 2.8H, Total Bilirubin 0.9, Aspartate Amino Transf (AST/SGOT) 25, Alanine Aminotransferase (ALT/SGPT) 23, Alkaline Phosphatase 147H, Total Protein 6.6, Albumin 3.2L, Globulin 3.4, Albumin/Globulin Ratio 0.9L, Lipase 732H, Salicylates Level 10.4, Acetaminophen Level < 2L, Serum Alcohol < 3 07/24/20 13:27: Urine Color Pale yellow, Urine Appearance Clear, Urine pH 5, Urine Specific Mathias 1.015, Urine Protein 2+H, Urine Glucose (UA) 4+H, Urine Ketones 4+H, Urine Blood 4+H, Urine Nitrite Negative, Urine Bilirubin Negative, Urine Urobilinogen Normal, Urine Leukocyte Esterase Negative, Urine RBC 2-4H, Urine WBC 0-2, Urine Squamous Epithelial Cells Occasional, Urine Bacteria None, Urine Random Sodium 33, Urine Opiates Screen Negative, Urine Barbiturates Screen Negative, Phencyclidine (PCP) Screen Negative, Urine Amphetamines Screen Negative, Urine Benzodiazepines Screen Negative, Urine Cocaine Screen Negative, Urine Marijuana (THC) Screen Negative 07/24/20 14:48: Lactic Acid Level 2.70H 07/24/20 17:23: Phosphorus Level 2.5 07/24/20 17:33: Sodium Level 135#L, Potassium Level 3.2L, Chloride Level 95L, Carbon Dioxide Level 10L, Anion Gap 30H, Blood Urea Nitrogen 66H, Creatinine 3.3H, Estimat Glomerular Filtration Rate 18.9, Glucose Level 638#*H, Calcium Level 7.6L, Total Bilirubin 0.7, Aspartate Amino Transf (AST/SGOT) 32, Alanine Aminotransferase (ALT/SGPT) 24, Alkaline Phosphatase 129H, Total Protein 5.9L, Albumin 2.7L, Globulin 3.2, Albumin/Globulin Ratio 0.8L 07/24/20 20:29: POC Whole Blood Glucose [Pending] 07/24/20 21:23: POC Whole Blood Glucose [Pending] 07/24/20 22:21: POC Whole Blood Glucose [Pending] 07/24/20 23:30: POC Whole Blood Glucose [Pending] 07/25/20 00:34: POC Whole Blood Glucose [Pending] 07/25/20 01:30: POC Whole Blood Glucose 138H 07/25/20 05:10: Prothrombin Time 12.3H, Prothromb Time International Ratio 1.1, Activated Partial Thromboplast Time 34H, Sodium Level 140, Potassium Level 3.8, Chloride Level 111H, Carbon Dioxide Level 17L, Anion Gap 12, Blood Urea Nitrogen 76H, Creatinine 2.3H, Estimat Glomerular Filtration Rate 28.7, Glucose Level 119#H, Hemoglobin A1c 11.3H, Uric Acid 7.7H, Calcium Level 7.9L, Phosphorus Level 1.4L, Magnesium Level 1.8, Total Bilirubin 0.4, Gamma Glutamyl Transpeptidase 21, Aspartate Amino Transf (AST/SGOT) 35, Alanine Aminotransferase (ALT/SGPT) 22, Alkaline Phosphatase 91, Ammonia 29, Lactate Dehydrogenase 231, Total Creatine Kinase 293, Troponin I 0.441H, C-Reactive Protein, Quantitative 20.1H, Pro-B-Type Natriuretic Peptide 3451H, Total Protein 4.5L, Albumin 2.2L, Globulin 2.3, Albumin/Globulin Ratio 1.0, Triglycerides Level 71, Cholesterol Level 119, LDL Cholesterol 59, HDL Cholesterol 39L, Cholesterol/HDL Ratio 3.1L, Lipase 796H, Thyroid Stimulating Hormone (TSH) 0.720 07/25/20 08:20: White Blood Count 8.8#, Red Blood Count 3.48L, Hemoglobin 10.8L, Hematocrit 29.4#L, Mean Corpuscular Volume 84#, Mean Corpuscular Hemoglobin 31.1H, Mean Corpuscular Hemoglobin Concent 36.9H, Red Cell Distribution Width 12.4, Platelet Count 207#, Mean Platelet Volume 7.6, Neutrophils (%) (Auto) 83.2H, Lymphocytes (%) (Auto) 6.8L, Monocytes (%) (Auto) 8.4, Eosinophils (%) (Auto) 0.0, Basophils (%) (Auto) 1.6 07/25/20 09:38: Arterial Blood pH 7.390, Arterial Blood Partial Pressure CO2 28.1L, Arterial Blood Partial Pressure O2 88.3, Arterial Blood HCO3 16.6*L, Arterial Blood Oxygen Saturation 95.6, Arterial Blood Base Excess -7.2L, Mark Test Positive Height (Feet): 5 Height (Inches): 7.00 Weight (Pounds): 155 General Appearance: no apparent distress Cardiovascular: bradycardia Respiratory/Chest: decreased breath sounds Abdomen: distended Leonardo West MD Jul 25, 2020 11:32
[2020-07-25] MEDS: Potassium Phosphate 15mm/250ml 250 ML IVPB SCH ×2 (11:41→15:47)
[2020-07-25] MEDS: NovoLOG Insulin Flexpen SUBQ SCH ×3 (11:57→20:10)
[2020-07-25] MEDS ORDERED: D5 1/2NS w/KCl 20mEq 1,000 ML IV SCH (12:00)
--- NOTE | 2020-07-25 12:13 | NUR ---
NURSE NOTES: Patient is awake but lethargic, knows name, does not know place, patient knows it is 2020, does not know purpose. Large bowel movement noted, gave bed bath to patient and changed beddings.
--- NOTE | 2020-07-25 14:02 | NUR ---
PACKAGE CAR DRIVER NOTE PT was resting w/ closed eyes when this SW attempted to assess pt. Pt did not respond to this SW. Per chart review, pt is from the residential facility. This SW was unable to retrieve/identify the name of facility/contact number: [address] [place] [address]. Per chart review, pt has hx of homelessness. There is no emergency contact provided by the residential facility. Per RN, pt is lethargic and does not respond verbally. This SW will assess pt when he becomes medically stable to participate in psychosocial assessment.
--- NOTE | 2020-07-25 15:54 | NUR ---
NURSE NOTES: Troponin level reported to Dr. Everett, ordered echocardiogram.
--- NOTE | 2020-07-25 15:55 | History & Physical ---
History and Physical History & Physicial -[id number] Navneet Espino MD Jul 25, 2020 15:55
--- NOTE | 2020-07-25 16:16 | NUR ---
DISCHARGE PLANNING PATIENT BELONGS AT [facility] SPOKE WITH FABIOLA AT [facility] EARLIER TODAY. PROVIDED TELEPHONIC REVIEW TO BACK UP CLINICALS THAT WERE FAXED THIS MORNING. AFTER MD TO MD CONVERSATION HAS BEEN COMPLETED [facility] WILL CALL THE [facility] FOR UPDATES ABOUT TRANSFER
--- NOTE | 2020-07-25 16:23 | Cardiology Report ---
APPROVED REPORT EKG Measurement Heart [id number] CO [id number] <Conclusion> Normal sinus rhythm Possible Left atrial enlargement. Left axis deviation. Tall and peaked T wave is suggestive of hyperkalemia. Abnormal ECG
[2020-07-25] MEDS ORDERED: Tubing IV Secondary IV ONE (17:54)
[2020-07-25] MEDS ORDERED: NS 275ml ONE (17:54)
--- NOTE | 2020-07-25 18:17 | NUR ---
NURSE NOTES: Bed bath given to patient, noted to have black stool. Informed Dr. Everett, orders received.
--- NOTE | 2020-07-25 19:10 | NUR ---
NURSE HAND-OFF REPORT: Latest Vital Signs: Temperature 98.4 , Pulse 93 , B/P 181 /79 , Respiratory Rate 23 , O2 SAT 98 , Room Air, O2 Flow Rate 2.0 . Vital Sign Comment: EKG Rhythm: Sinus Rhythm Rhythm change?: N MD Notified?: - MD Response: Latest Copeland Fall Score: 50 Fall Risk: High Risk Safety Measures: Call light Within Reach, Bed Alarm Zone 1, Side Rails Side Rails x3, Bed position Low and Locked. Fall Precautions: Yellow Socks Yellow Gown Door Sign Patient Fall Education Report given to [facility].
--- NOTE | 2020-07-25 19:30 | NUR ---
NURSE NOTES: Report received from [facility]. Observed pt lying in the bed, awake, denies any pain at this time, able to make needs known. SR on court recording monitor. On room air, with no sob, saturating at 100%. NPO noted. Condom cath noted. Perineal redness noted. IV on R AC 20G, running D5 1/2 NS with 20meq at 75cc/hr. L FA 22G, intact, TKO. Bed in the lowest position. Side rails up x3. Call light within reach. Will continue to monitor.
[2020-07-25] MEDS: Tamsulosin 0.4mg cap ORAL SCH (20:08)
--- NOTE | 2020-07-25 22:00 | NUR ---
NURSE NOTES: pt lying in the bed, sleeping, no acute distress noted at this time. Report given to Bennett at [facility]. Awaiting for the transfer.
[2020-07-25] MEDS ORDERED: cefTRIAXone 1 GM in D5W 55 ML IVPB SCH (23:00)
--- NOTE | 2020-07-25 23:58 | NUR ---
NURSE NOTES: Pt discharged/transferred to [facility]. Report given to Transfer. Pt stable. No acute distress noted at this time.
--- NOTE | 2020-07-26 | History and Physical Report ---
DATE OF ADMISSION: 07/24/2020 CHIEF COMPLAINT: Uncontrolled diabetes, hyperglycemia. HISTORY OF PRESENT ILLNESS: This is a 65-year-old gentleman with past medical history significant for diabetes type 2, alcoholism who presented to the hospital from board and care after was noted to have blood glucose level noted to be high. Patient has been drinking recently, forgot to take his medication. He had several hospitalizations in the past due to the DKA. He denies any fever, chills, nausea, vomiting, and diarrhea. Denies any dysuria, frequency, or hematuria. Denies any fall or head trauma. Complained about the thirst and frequent urination. Shortly after initial evaluation in the emergency department, patient was noted to have blood glucose level was noted to be 1083 and potassium was 6.4 and sodium 121. Subsequently, patient was admitted to ICU with DKA. PAST MEDICAL HISTORY/PAST SURGICAL HISTORY: As above. History of diabetes type 2, alcoholism. Denies any past surgical history. Patient has a history of schizophrenia, noncompliance with medication. SOCIAL HISTORY: Patient currently smokes. Heavy drinker. No substance abuse. FAMILY HISTORY: Noncontributory. MEDICATIONS: Home please refer to medication reconciliation. ALLERGIES: No known drug allergies. REVIEW OF SYSTEMS: Mostly as above. Denies any fever, chills, nausea, vomiting, or diarrhea. Denies any hemoptysis or hematochezia. Complained of polyuria, polydipsia. Denies any loss of consciousness. Denies any fall or head trauma. PHYSICAL EXAMINATION: VITAL SIGNS: On admission from the emergency room, temperature 98.2, pulse of 106, respirations 24, blood pressure 132/78. GENERAL: Patient is awake, responsive. No acute distress, but chronically ill appearing. HEAD AND NECK: Pupils are equal and reactive to light. Extraocular movements are intact. Neck was supple. No JVD. LUNGS: Clear. No wheezing or rales. HEART: S1, S2. Regular rhythm. No gallops. ABDOMEN: Soft, nondistended, nontender. Positive bowel sounds. EXTREMITIES: No cyanosis, clubbing, edema. 2/6. NEUROLOGIC: Cranial nerves II through XII grossly intact. Patient is moving all the extremities. Gait was not assessed due to patient's status. LABORATORY DATA: On admission from the emergency department WBC of 19, hemoglobin of 14, hematocrit 45, platelets is 483. Sodium 117, potassium 6.3, chloride 74, bicarb is 6, BUN is 62, creatinine is 4.2, glucose level is greater than 1000, calcium is 8.4, magnesium is 3.1. AST of 27, ALT of 32. Troponin 0.163. Albumin is 3.6. Lipase is 621. Alcohol level is 319. COVID test is negative. Chest x-ray shows the right basal infiltrate, possible pneumonia. Renal ultrasound negative for hydronephrosis. ASSESSMENT: 1. DKA. 2. Noncompliance. 3. Schizophrenia. 4. Diabetes type 2, uncontrolled. 5. Acute kidney injury on chronic renal insufficiency. 6. Lactic acidosis. 7. Hyponatremia. 8. Hyperkalemia. 9. Right lung infiltrate, possible due to aspiration pneumonia. 10. Elevated troponin, possible demand ischemia versus acute myocardial infarction. PLAN: Admit the patient to ICU. We will follow up with DKA protocol. Aggressive IV hydration. Monitor laboratory closely. Follow up with the cultures. Code status is Full Code. DVT prophylaxis, heparin subcutaneous. We will start patient on broad-spectrum antibiotic with Rocephin and Flagyl due to possibility of aspiration pneumonia and follow up with the troponin level. Navneet Espino M.D. DR: JOSE JOB#: [id number] CC:
--- NOTE | 2020-07-26 19:41 | Discharge Summary ---
Discharge Summary Discharge Summary _ DATE OF ADMISSION: 07/24/2020 DATE OF DISCHARGE: 07/25/2020 DISCHARGED BY: Dr. Navneet Espino CONSULTANTS: Dr. Leonardo Everett BRIEF HOSPITAL COURSE: Patient is a 65-year-old gentleman with past medical history significant for diabetes type 2, alcoholism, who presented to the hospital from [facility] facility after he was noted to have high blood glucose level. Patient had been drinking recently and forgot to take his medication. He had several hospitalizations in the past due to DKA. Upon evaluation at ED, patient was noted to be Tachycardic with Kussmaul respirations. There was no focal neurologic deficits. Blood work showed glucose level elevated to 1083. Sodium 117. Potassium was 6.4. Carbon dioxide 6. BUN 65 and creatinine 3.8. WBC was elevated to 19. Urine toxicology was negative. Serum alcohol less than 3. Acetone level positive. Urinalysis was positive for glucose and ketones. EKG showed peaked T waves in septal and lateral leads. There were no T wave inversions. No signs of ischemia. He was given aggressive IV resuscitation. He was given regular insulin bolus and was eventually started on insulin drip. He was given calcium, dextrose and bicarbonate. Chest x-ray showed right basilar infiltrate, possibly pneumonia rapid COVID testing was negative. Patient was then admitted to ICU for management of DKA. He was continued on insulin drip. Blood glucose was closely monitored. He was given aggressive IV hydration. He was started empirically on Rocephin and Flagyl. Patient was pancultured. Kidney ultrasound was negative for hydronephrosis. Echocardiogram still pending. Blood culture did not isolate any growth. Patient was eventually transferred to contracted facility. FINAL DIAGNOSES: Diabetic ketoacidosis Noncompliance Schizophrenia Diabetes type 2, uncontrolled Acute kidney injury on chronic renal insufficiency Lactic acidosis Hyponatremia Hyperkalemia Right lung infiltrate, possible due to aspiration pneumonia Elevated troponin, possible demand ischemia versus acute myocardial infarction DISPOSITION: Patient was transferred to [facility]. DISCHARGE MEDICATIONS: Refer to Discharge Medication List. Intermittent FELDER, congenital, pneumonia I have been assigned to complete a discharge summary on this account, I was not involved with the patient's management.--GREGORY Carrillo Jacqueline Robles NP Jul 26, 2020 19:41
--- NOTE | 2020-07-28 08:50 | Cardiology Report ---
APPROVED REPORT EXAM: Two-dimensional and M-mode echocardiogram with Doppler and color Doppler. INDICATION Congestive Heart Failure M-Mode DIMENSIONS IVSd0.8 (0.7-1.1cm)Left Atrium (MM)3.0 (1.6-4.0cm) LVDd5.1 (3.5-5.6cm)Aortic Root3.7 (2.0-3.7cm) PWd0.9 (0.7-1.1cm)Aortic Cusp Exc.2.0 (1.5-2.0cm) IVSs1.6 cm LVDs2.9 (2.5-4.0cm) PWs1.6 cm <Conclusion> Technically difficult study due to poor acoustic windows and patients breathing. Study quality precludes accurate assessment of regional wall motion. Normal left ventricular chamber size, systolic function and wall motion to extent visualized. Left ventricular ejection fraction estimated to be grossly normal. No evidence of left ventricular hypertrophy. No evidence of pericardial effusion. All other cardiac chamber sizes are within normal limits. Mild focal aortic valve sclerosis with adequate cusp excursion. Thickened mitral valve leaflets with normal excursion. Mild mitral annulus and aortic root calcification. Pulmonic valve not visualized. Normal tricuspid valve structure. IVC is normal in size with physiological collapse. A color flow and spectral Doppler study was performed and revealed: No aortic regurgitation. No mitral regurgitation. Mitral diastolic velocities suggest mild left ventricular diastolic dysfunction (Grade I). Trace tricuspid regurgitation. Tricuspid systolic velocities suggests peak right ventricular systolic pressure of 13 mmHg.
== END 2020-07-25 23:09 | disposition short-term general hospital (02) | DRG 637 ==
LOC: EDBD 11:01 → EMR 11:59 → ICU 12:20 → EDBEDREQ 17:42
DX: E11.10 Type 2 diabetes mellitus with ketoacidosis without coma (principal); J69.0 Pneumonitis due to inhalation of food and vomit; N17.9 Acute kidney failure, unspecified; E87.1 Hypo-osmolality and hyponatremia; I24.8 Other forms of acute ischemic heart disease; E87.0 Hyperosmolality and hypernatremia; E87.2 Acidosis; F20.9 Schizophrenia, unspecified; F10.20 Alcohol dependence, uncomplicated; E11.65 Type 2 diabetes mellitus with hyperglycemia; N18.9 Chronic kidney disease, unspecified; I12.9 Hypertensive chronic kidney disease with stage 1 through stage 4 chronic kidney disease, or unspecified chronic kidney disease; E87.5 Hyperkalemia; E86.0 Dehydration; Z79.4 Long term (current) use of insulin; Z91.14 Patient's other noncompliance with medication regimen; F17.200 Nicotine dependence, unspecified, uncomplicated
CPT/HCPCS: 36415; 71045; 76770; 80053; 80061; 80307; 81001; 82009; 82140; 82550; 82803; 82962; 82977; 83036; 83605; 83615; 83690; 83735; 83880; 83930; 84100; 84300; 84443; 84484; 84550; 85007; 85025; 85610; 85730; 86140; 87040; 87081; 87086; 87181; 93005; 93306; 96365; 96367; 96375; 99291; G0480; J1815; J7030; U0002